=== PATIENT | male | born 1930 | race Caucasian/White ===

== ENCOUNTER 2017-05-09 12:16 | Emergency (ER) | payer OTHER ==
[~2017-05-09] VITALS: Ht 165.1 cm; Wt 54.5 kg
[2017-05-09 12:17] VITALS: BP 191/95; PULSE 69; RESP 14; TEMP 98.5; O2SAT 97
[2017-05-09] MEDS ORDERED: SODIUM CHLORIDE 0.9% FLUSH 10 ML FLUSH IV FLUSH PRN (12:30)
--- NOTE | 2017-05-09 12:30 | PD ---
HPI Chief Complaint: Hypertension Time Seen by Provider: 12:28 Travel History International Travel<30 days: No Contact w/Intl Traveler<30days: No Traveled to known affect area: No History of Present Illness HPI 86-year-old male with PMH of HTN, HLD presents to the ED for evaluation of 3 day history of elevated BP. The patient endorses associated dizziness, worse when rising from sitting. He states that he had an episode 3 days ago where he was dizzy, fell to the ground. He did hit his head but he denies loss of consciousness. He denies headaches, vision changes, chest pain, shortness of breath, palpitations, abdominal pain, changes in appetite, changes in bowel habits, dysuria, back pain, weakness of the extremities. He endorses occasional streaky blood on the toilet paper which he associates with an external hemorrhoid. Patient's is at bedside and denies any unilateral weakness, facial drooping or slurred speech. He is followed by Dr. Blanchard, cardiology and Dr. Cortes, PCP. He saw Dr. Cortes yesterday and changes were made to his antihypertensives. PFSH Social History Tobacco Use: No (never) Allergies-Medications (Allergen,Severity, Reaction): Coded Allergies: No Known Allergies (Unverified , 05/09/17) Reported Meds & Prescriptions Reported Meds & Active Scripts Active Reported Timolol Opth Drops 0.5 % Soln 1 Drop EACH EYE BID Lisinopril 20 Mg Tab 20 Mg PO DAILY Aspirin 81 Mg Chew 81 Mg CHEW DAILY Amlodipine (Amlodipine Besylate) 5 Mg Tab 5 Mg PO DAILY Metoprolol Tartrate 25 Mg Tab 25 Mg PO TID Lovastatin 20 Mg Tab 20 Mg PO DAILY Review of Systems Except as stated in HPI: all other systems reviewed are Neg Physical Exam Narrative GENERAL: Well-nourished, well-developed pleasant, well-groomed white male in no acute distress. SKIN: Focused skin assessment warm/dry. HEAD: Normocephalic. Atraumatic. EYES: No scleral icterus. No injection or drainage. NECK: Supple, trachea midline. No JVD or lymphadenopathy. CARDIOVASCULAR: Regular rate and rhythm without gallops, or rubs. Systolic murmur heard best over the left lower sternal border. RESPIRATORY: Breath sounds equal bilaterally. No accessory muscle use. GASTROINTESTINAL: Abdomen soft, non-tender, nondistended. Active bowel sounds. MUSCULOSKELETAL: No cyanosis, or edema. NEUROLOGICAL: Awake and alert. Cranial nerves II through XII intact. Motor and sensory grossly within normal limits. Five out of 5 muscle strength in all muscle groups. Normal speech. BACK: Nontender without obvious deformity. No CVA tenderness. Data Data Last Documented VS Vital Signs Date Time Temp Pulse Resp B/P (MAP) Pulse Ox O2 Delivery O2 Flow Rate FiO2 05/09/17 14:45 63 17 159/91 (113) 99 05/09/17 12:32 Room Air 05/09/17 12:17 98.5 Orders Orders Complete Blood Count With Diff (05/09/17 12:28) Comprehensive Metabolic Panel (05/09/17 12:28) Prothrombin Time / Inr (Pt) (05/09/17 12:28) Act Partial Throm Time (Ptt) (05/09/17 12:28) Urinalysis - C+S If Indicated (05/09/17 12:28) Iv Access Insert/Monitor (05/09/17 12:28) Ecg Monitoring (05/09/17 12:28) Oximetry (05/09/17 12:28) Sodium Chloride 0.9% Flush (Ns Flush) (05/09/17 12:30) Electrocardiogram (05/09/17 12:28) Chest, Single Ap (05/09/17 12:28) Ct Brain W/O Iv Contrast(Rout) (05/09/17 ) Troponin I (05/09/17 12:28) Orthostatic Vital Signs (05/09/17 13:27) Ed Discharge Order (05/09/17 14:42) Labs Laboratory Tests Test 05/09/17 12:30 05/09/17 13:12 White Blood Count 6.6 TH/MM3 Red Blood Count 3.99 MIL/MM3 Hemoglobin 12.9 GM/DL Hematocrit 37.5 % Mean Corpuscular Volume 94.1 FL Mean Corpuscular Hemoglobin 32.3 PG Mean Corpuscular Hemoglobin Concent 34.4 % Red Cell Distribution Width 13.2 % Platelet Count 180 TH/MM3 Mean Platelet Volume 8.6 FL Neutrophils (%) (Auto) 66.4 % Lymphocytes (%) (Auto) 23.5 % Monocytes (%) (Auto) 7.9 % Eosinophils (%) (Auto) 1.7 % Basophils (%) (Auto) 0.5 % Neutrophils # (Auto) 4.4 TH/MM3 Lymphocytes # (Auto) 1.6 TH/MM3 Monocytes # (Auto) 0.5 TH/MM3 Eosinophils # (Auto) 0.1 TH/MM3 Basophils # (Auto) 0.0 TH/MM3 CBC Comment DIFF FINAL Differential Comment Prothrombin Time 10.1 SEC Prothromb Time International Ratio 0.9 RATIO Activated Partial Thromboplast Time 24.8 SEC Blood Urea Nitrogen 13 MG/DL Creatinine 0.95 MG/DL Random Glucose 119 MG/DL Total Protein 7.5 GM/DL Albumin 3.8 GM/DL Calcium Level 8.9 MG/DL Alkaline Phosphatase 66 U/L Aspartate Amino Transf (AST/SGOT) 20 U/L Alanine Aminotransferase (ALT/SGPT) 21 U/L Total Bilirubin 0.9 MG/DL Sodium Level 139 MEQ/L Potassium Level 4.1 MEQ/L Chloride Level 105 MEQ/L Carbon Dioxide Level 28.3 MEQ/L Anion Gap 6 MEQ/L Estimat Glomerular Filtration Rate 75 ML/MIN Troponin I LESS THAN 0.02 NG/ML Urine Color YELLOW Urine Turbidity CLEAR Urine pH 7.[address] 1.011 Urine Protein NEG mg/dL Urine Glucose (UA) NEG mg/dL Urine Ketones NEG mg/dL Urine Occult Blood NEG Urine Nitrite NEG Urine Bilirubin NEG Urine Urobilinogen LESS THAN 2.0 MG/DL Urine Leukocyte Esterase NEG Urine RBC LESS THAN 1 /hpf Urine WBC LESS THAN 1 /hpf Urine Squamous Epithelial Cells <1 /hpf Urine Mucus FEW /lpf Microscopic Urinalysis Comment CULT NOT INDICATED MDM Medical Decision Making Medical Screen Exam Complete: Yes Emergency Medical Condition: Yes Differential Diagnosis Persistent hypertension versus anemia versus metabolic derangement versus ICH versus SUZI versus other Narrative Course 86-year-old male with PMH of HTN, HLD presents to the ED for evaluation of 3 day history of elevated BP. The patient endorses associated dizziness, worse when rising from sitting. He states that he had an episode 3 days ago where he was dizzy, fell to the ground, hit his head sans LOC. He denies headaches, vision changes, chest pain, shortness of breath, palpitations, abdominal pain, changes in appetite, changes in bowel habits, dysuria, back pain, weakness of the extremities. Followed by Dr. Blanchard, cardiology and Dr. Cortes, PCP. He saw Dr. Cortes yesterday and was prescribed 5 mg amlodipine daily. Vitals reviewed. BP 191/95 on presentation. Physical exam reveals a pleasant white male in no acute distress. No focal neurological exams. There is a loud systolic murmur heard best at the left lower sternal border. Abdomen is soft and nontender. No lower extremity edema. EKG: Rate 62, sinus rhythm. LA interval 206, QRS 103, QTC 391. Normal axis. No ST changes. Reviewed by Dr. Mccall. CXR: No acute intrathoracic disease. Troponin negative 1. CBC and CMP are unremarkable. No culture indicated of the UA. CT brain: Negative for acute process per radiology read. Orthostatic vitals: Negative I discussed the patient and results of the workup and plan with Dr. Mccall who recommends calling the primary care. I spoke with Dr. Colby Choi, carbon capture power plant manager for Dr. Cortes. He is in agreement with discharge home today with close follow- up. He requested I provide his contact information to the patient should they have any questions. Phone . I discussed the results of the workup with the patient and his family. He is encouraged to room his at-home medications, keep a log of his blood pressures. We discussed reasons to return to the ED. He was provided with Dr. Choi's contact information and instructed to follow up closely with Dr. Cortes next week. The patient and his family indicated understanding of the instructions and are agreeable to the care plan. The patient is stable and discharged home. Diagnosis Primary Impression: Hypertension Qualified Codes: I10 - Essential (primary) hypertension Additional Impressions: Fall from standing Qualified Codes: W19.XXXA - Unspecified fall, initial encounter Dizziness Referrals: Carl Cortes MD Patient Instructions: Dizziness (ED), General Instructions, Hypertension (ED) Additional Instructions: Rest, hydrate. Return to normal, gentle activities as tolerated. Resume at home medications as previously prescribed. Dr. Colby Choi is covering for Dr. Cortes this week. If you have any questions please call him at [phone] before coming to the ED. Follow-up with Dr. Cortes next week. Return to the ED for worsening symptoms or any urgent or emergent medical condition. Disposition: DISCHARGE HOME Condition: Stable Hayley Camacho 10, 2017 12:30
[2017-05-09 12:32] VITALS: RESP 20; O2SAT 98
[2017-05-09] MEDS ORDERED: LISI-515 PO (12:32)
[2017-05-09] MEDS ORDERED: LOVA20TA PO (12:32)
[2017-05-09] MEDS ORDERED: AMLO5TAB2 PO (12:32)
[2017-05-09] MEDS ORDERED: ASPI-516 CHEW (12:32)
[2017-05-09] MEDS ORDERED: TIMO0.5S30 EACH EYE (12:32)
[2017-05-09] MEDS ORDERED: METO25TA3 PO (12:32)
[2017-05-09 12:58] LABS: AUTOMATED NEUTROPHIL # 4.4 TH/MM3 (1.8-7.7); BASOPHIL % 0.5 % (0.0-2.0); EOSINOPHIL # 0.1 TH/MM3 (0-0.4); EOSINOPHIL % 1.7 % (0.0-4.0); HEMATOCRIT 37.5 % (39.0-51.0); HEMO FLAGS DIFF FINAL; LYMPH % 23.5 % (9.0-44.0); LYMPHOCYTE # 1.6 TH/MM3 (1.0-4.8); MEAN CELL VOLUME 94.1 FL (80.0-100.0); MEAN CORPUSCULAR HEMOGLOBIN 32.3 PG (27.0-34.0); MEAN CORPUSCULAR HGB CONC 34.4 % (32.0-36.0); MONO % 7.9 % (0.0-8.0); NEUT % 66.4 % (16.0-70.0); PLATELET COUNT 180 TH/MM3 (150-450); RED BLOOD COUNT 3.99 MIL/MM3 (4.50-5.90); RED CELL DISTRIBUTION WIDTH 13.2 % (11.6-17.2); WHITE BLOOD COUNT 6.6 TH/MM3 (4.0-11.0)
--- NOTE | 2017-05-09 13:01 | RADRPT ---
EXAM DATE/TIME: 05/09/2017 12:48 [facility] COMPARISON: No previous studies available for comparison. INDICATIONS : Chest discomfort, high blood pressure, dizziness. MEDICAL HISTORY : Hypertension. SURGICAL HISTORY : Coronary artery stent. ENCOUNTER: Initial ACUITY: 2 days PAIN SCORE: 3/10 LOCATION: Bilateral chest FINDINGS: A single view of the chest demonstrates the lungs to be symmetrically aerated without evidence of mas s, infiltrate or effusion. There is a right-sided nipple shadow projected over the right lower lung. The cardiomediastinal contours are unremarkable. Osseous structures are intact. There is scoliosis and curvature of the thoracic spine to the right. CONCLUSION: No acute intrathoracic disease. Pietro Valente MD on May 09, 2017 at 12:59 Board Certified Radiologist. This report was verified electronically.
[2017-05-09 13:08] LABS: APTT (PATIENT) 24.8 SEC (24.3-30.1); INTERNATIONAL NORMALIZED RATIO 0.9 RATIO; PROTHROMBIN TIME - PATIENT 10.1 SEC (9.8-11.6)
[2017-05-09 13:11] LABS: ALT (GPT) 21 U/L (12-78); ANION GAP 6 MEQ/L (5-15); AST (GOT) 20 U/L (15-37); BICARBONATE 28.3 MEQ/L (21.0-32.0); BLOOD UREA NITROGEN 13 MG/DL (7-18); CHLORIDE 105 MEQ/L (98-107); GLOMERULAR FILTRATION RATE 75 ML/MIN (>89); POTASSIUM 4.1 MEQ/L (3.5-5.1); SODIUM (NA) 139 MEQ/L (136-145)
[2017-05-09 13:15] LABS: ALKALINE PHOSPHATASE 66 U/L (45-117); TOTAL BILIRUBIN ADULT 0.9 MG/DL (0.2-1.0)
[2017-05-09 13:27] LABS: BLOOD, URINE NEG (NEG); COMMENT (UR) CULT NOT INDICATED; CULTURE IF INDICATED CULT NOT INDICATED; GLUCOSE,URINE NEG (NEG); KETONE, URINE NEG (NEG); MUCUS URINE FEW /lpf (OCC); NITRITE,URINE NEG (NEG); SQUAMOUS EPITHELIAL CELL URINE <1 /hpf (0-5); URINE COLOR YELLOW (YELLW/STRAW)
[2017-05-09 13:54] VITALS: BP_SYST 151; BP_SYST 158; BP_SYST 161; BP_DIAS 78; BP_DIAS 88; BP_DIAS 92; RESP 16; RESP 20; RESP 22
--- NOTE | 2017-05-09 14:26 | RADRPT ---
EXAM DATE/TIME: 05/09/2017 14:13 [facility] COMPARISON: No previous studies available for comparison. INDICATIONS : Dizziness, cephalgia. RADIATION DOSE: 31.13 CTDIvol (mGy) MEDICAL HISTORY : None SURGICAL HISTORY : None. ENCOUNTER: Initial ACUITY: 1 day PAIN SCALE: 5/10 LOCATION: Bilateral cranial TECHNIQUE: Multiple contiguous axial images were obtained of the head. Using automated exposure control and adj ustment of the mA and/or kV according to patient size, radiation dose was kept as low as reasonably a chievable to obtain optimal diagnostic quality images. DICOM format image data is available electro nically for review and comparison. FINDINGS: CEREBRUM: The ventricles are normal for age. No evidence of midline shift, mass lesion, hemorrhage or acute in farction. No extra-axial fluid collections are seen. POSTERIOR FOSSA: The cerebellum and brainstem are intact. The 4th ventricle is midline. The cerebellopontine angle i s unremarkable. EXTRACRANIAL: The visualized portion of the orbits is intact. SKULL: The calvaria is intact. No evidence of skull fracture. CONCLUSION: Negative for an acute process. Abraham Rawls MD FACR on May 09, 2017 at 14:24 Board Certified Radiologist. This report was verified electronically.
[2017-05-09 14:45] VITALS: BP 159/91
--- NOTE | 2017-05-10 12:47 | EKG ---
Date Performed: 05/09/2017 Time Performed: 12:59:44 PTAGE: 86 years EKG: Sinus rhythm NORMAL ECG NO PREVIOUS TRACING DOCTOR: Jah Gomez Interpretating Date/Time 05/10/2017 12:46:28
== END 2017-05-09 15:09 | disposition home or self-care (01) ==
LOC: NEPC 12:16
DX: I10 Essential (primary) hypertension (principal); R42 Dizziness and giddiness; W19.XXXA Unspecified fall, initial encounter; E78.5 Hyperlipidemia, unspecified
CPT/HCPCS: 70450; 71010; 80053; 81001; 84484; 85025; 85610; 85730; 93005; 99285

== ENCOUNTER 2018-04-25 09:49 | Inpatient (IN) ==
--- NOTE | 2018-04-25 10:51 | ED ---
HPI General Chief Complaint: Neuro Symptoms/Deficit Stated Complaint: Poss Stroke Complaint Time Seen by Provider: 04/25/18 10:05 Source: patient Mode of arrival: ambulatory Limitations: no limitations History of Present Illness HPI Narrative: The patient is 87-year-old male who presents to the emergency department with family members for strokelike times. The patient was last seen normal last night at approximately 11 PM. The patient fell asleep during the baseball game, approximately the 6 standing per his report. The states the patient then developed right-sided facial droop and difficulty with speech, however, he did not want to come to the hospital last night. However, the patient's symptoms were still present this morning and they brought the patient to the emergency department for evaluation. He does complain of right facial droop, mild dysarthria, and family members note the patient has been having difficulty ambulating, however, he denies any weakness of the lower extremities. He denies any weakness or numbness of the upper or lower extremities and denies any history of previous CVA. The patient does take an aspirin daily. The patient does have a history of hypertension and hyperlipidemia, denies any history of diabetes, current tobacco use, or previous CVA. Onset (ago): hour(s) Last Observed Normal: 23:00 Timing confirmed by: spouse Location: Reports speech and right face History of same: No Severity: moderate Quality: Reports constant Relieving factors: none Exacerbating factors: none On Anticoagulants: No Treatments Prior to Arrival: Reports none Related Data Home Medications Medication Instructions Recorded Confirmed aspirin 81 mg PO DAILY 04/25/18 04/25/18 lisinopril 20 mg PO BID 04/25/18 04/25/18 lovastatin 20 mg PO QPM 04/25/18 04/25/18 metoprolol tartrate 25 mg PO TID 04/25/18 04/25/18 Allergies Allergy/AdvReac Type Severity Reaction Status Date / Time No Known Allergies Allergy Verified 02/10/18 18:11 Review of Systems ROS: all other systems reviewed are negative [facility] Medical History Medical History Hyperlipidemia (Acute) Hypertension (Acute) Surgical History Surgical History H/O hernia repair (Acute) History of prostate surgery (Acute) Hx of appendectomy (Acute) Hx of tonsillectomy (Acute) Family History Family History Other CAD (coronary artery disease) Social History Social History Substance History: No History of Abuse Second Hand Smoke Exposure: No Smoking Status: Never smoker How Often Do You Have a Drink Containing Alcohol: Never Recent Travel in [facility] within the Last 8 Weeks: No Recent Out of Country Travel within the Last 8 Weeks: No Immunization History Tetanus Immunization: Unsure Tetanus Immunization Year if Known: 2013 Exam Narrative Exam Narrative: GENERAL: Awake, alert, pleasant 87-year-old male who appears his stated age and is in no acute respiratory distress. SKIN: Focused skin assessment warm/dry. HEAD: Atraumatic. Normocephalic. EYES: Pupils equal and round. No scleral icterus. No injection or drainage. ENT: No nasal bleeding or discharge. Mucous membranes pink and moist. NECK: Trachea midline. No JVD. CARDIOVASCULAR: Regular rate and rhythm. Holosystolic murmur noted. RESPIRATORY: No accessory muscle use. Clear to auscultation. Breath sounds equal bilaterally. GASTROINTESTINAL: Abdomen soft, non-tender, nondistended. MUSCULOSKELETAL: No obvious deformities. No clubbing. No cyanosis. No edema. NEUROLOGICAL: Awake and alert. Right facial droop. Dysarthria noted. Patient is able to wrinkle his forehead bilaterally, symmetric. Sensation is symmetric on the face, arms, and legs. Mild drift of the right arm. No drift of the lower extremities. Finger to nose is normal. Heel to duncan is normal. Visual yost are symmetric. Dysarthria noted. Oriented to person, place, month, and year. PSYCHIATRIC: Appropriate mood and affect; insight and judgment normal. Course Initial Documented Vital Signs Temperature 97.5 F L 04/25/18 09:56 Pulse Rate 60 04/25/18 09:56 Respiratory Rate 20 04/25/18 09:56 Blood Pressure 182/86 H 04/25/18 09:56 Pulse Oximetry 98 04/25/18 09:56 Last Documented Vital Signs Temperature 97.5 F L 04/25/18 09:56 Pulse Rate 68 04/25/18 14:03 Respiratory Rate 16 04/25/18 14:03 Blood Pressure 183/84 H 04/25/18 14:03 Pulse Oximetry 98 04/25/18 13:14 NIH Stroke Scale NIH Stroke Scale Level of Consciousness: 0-Alert Orientation Questions: 0-Answers both correct Responds to Commands: 0-Both tasks correct Gaze Eye Movement: 0-Horizontal movement WNL Visual Yost: 0-No visual field defect Facial Movement: 2-Partial facial palsy Motor Functions Arm LEFT: 0-No drift Motor Functions Arm RIGHT: 1-Drift before 10 seconds Motor Functions Leg LEFT: 0-No drift Motor Functions Leg RIGHT: 0-No drift Limb Ataxia: 0-No ataxia Sensory Loss: 0-No sensory loss Best Language: 0-Normal Articulation: 2-Severe dysarthria Extinction or Inattention Sensory: 0-Absent Total: 5 Medical Decision Making MDM Narrative Medical decision making narrative: IV was established, labs were drawn and sent , and the patient was placed on cardiac telemetry monitoring and continuous pulse oximetry monitoring. EKG was ordered and interpreted. CT of the brain was obtained. A call was placed to neurology as patient possibly could be a candidate for IR, possibility of CTA addressed with neurology. The patient's stroke scale was 5 with dysarthria, possible candidate for IR. I discussed the patient with Dr. Samuel who request CTA of the head and neck as well as CT perfusion. Therefore, i-STAT was called to lab and CTs were ordered. Initial CT the brain is negative, no evidence of hemorrhage, old CVA noted. CTA reveals no acute abnormalities, therefore, no IR intervention. Therefore, the patient was administered aspirin. I discussed the patient with the on-call medical team who agreed with admission. Medical Screen Exam Complete: Yes Emergency Medical Condition: Yes Differential Diagnosis Differential Diagnosis: Differential diagnosis includes CVA, TIA, intracranial hemorrhage, Núñez's palsy, complicated migraine, seizure. Lab Data Result diagrams: 04/25/18 10:30 04/25/18 10:30 Lab Results 04/25/18 04/25/18 04/25/18 Range/Units 10:30 10:30 10:30 WBC 6.9 (4.0-11.0) th/mm3 RBC 3.90 L (4.50-5.90) mil/mm3 Hgb 12.5 L (13.0-17.0) gm/dL Hct 36.8 L (39.0-51.0) % MCV 94.4 (80.0-100.0) fL MCH 32.0 (27.0-34.0) pg MCHC 33.9 (32.0-36.0) % RDW 13.0 (11.6-17.2) % Plt Count 199 (150-450) th/mm3 MPV 8.3 (7.0-11.0) fL Neut % (Auto) 67.9 (16.0-70.0) % Lymph % (Auto) 20.8 (9.0-44.0) % [place] % (Auto) 7.5 (0.0-8.0) % Eos % (Auto) 3.3 (0.0-4.0) % Baso % (Auto) 0.5 (0.0-2.0) % Neut # (Auto) 4.7 (1.8-7.7) th/mm3 Lymph # (Auto) 1.4 (1.0-4.8) th/mm3 [place] # (Auto) 0.5 (0.0-0.9) th/mm3 Eos # (Auto) 0.2 (0.0-0.4) th/mm3 Baso # (Auto) 0.0 (0.0-0.2) th/mm3 WBC Differential . Differential Comment Auto diff final PT 10.3 (9.8-11.6) sec INR 1.0 Ratio APTT 23.8 L (24.3-30.1) sec Sodium 141 (136-145) meq/L Potassium 4.1 (3.5-5.1) meq/L Chloride 105 (98-107) meq/L Carbon Dioxide 31.1 (21.0-32.0) meq/L Anion Gap 5 (5-15) meq/L BUN 15 (7-18) mg/dL Creatinine 1.14 (0.60-1.30) mg/dL Estimated GFR 61 L (>89) mL/min POC Glucose (68-110) mg/dl Random Glucose 92 (74-106) mg/dL Calcium 9.1 (8.5-10.1) mg/dL Total Bilirubin 1.5 H (0.2-1.0) mg/dL AST 23 (15-37) U/L ALT 21 (12-78) U/L Alkaline Phosphatase 61 (45-117) U/L Total Creatine Kinase 284 (39-308) U/L CK-MB (CK-2) 2.3 (0.5-3.6) ng/mL Troponin I Less than 0.02 L (0.02-0.05) ng/mL Total Protein 7.5 (6.4-8.2) g/dL Albumin 3.8 (3.4-5.0) g/dL 04/25/18 Range/Units 10:36 WBC (4.0-11.0) th/mm3 RBC (4.50-5.90) mil/mm3 Hgb (13.0-17.0) gm/dL Hct (39.0-51.0) % MCV (80.0-100.0) fL MCH (27.0-34.0) pg MCHC (32.0-36.0) % RDW (11.6-17.2) % Plt Count (150-450) th/mm3 MPV (7.0-11.0) fL Neut % (Auto) (16.0-70.0) % Lymph % (Auto) (9.0-44.0) % [place] % (Auto) (0.0-8.0) % Eos % (Auto) (0.0-4.0) % Baso % (Auto) (0.0-2.0) % Neut # (Auto) (1.8-7.7) th/mm3 Lymph # (Auto) (1.0-4.8) th/mm3 [place] # (Auto) (0.0-0.9) th/mm3 Eos # (Auto) (0.0-0.4) th/mm3 Baso # (Auto) (0.0-0.2) th/mm3 WBC Differential Differential Comment PT (9.8-11.6) sec INR Ratio APTT (24.3-30.1) sec Sodium (136-145) meq/L Potassium (3.5-5.1) meq/L Chloride (98-107) meq/L Carbon Dioxide (21.0-32.0) meq/L Anion Gap (5-15) meq/L BUN (7-18) mg/dL Creatinine (0.60-1.30) mg/dL Estimated GFR (>89) mL/min POC Glucose 101 (68-110) mg/dl Random Glucose (74-106) mg/dL Calcium (8.5-10.1) mg/dL Total Bilirubin (0.2-1.0) mg/dL AST (15-37) U/L ALT (12-78) U/L Alkaline Phosphatase (45-117) U/L Total Creatine Kinase (39-308) U/L CK-MB (CK-2) (0.5-3.6) ng/mL Troponin I (0.02-0.05) ng/mL Total Protein (6.4-8.2) g/dL Albumin (3.4-5.0) g/dL Imaging Data Radiologist's impression: Head CT 04/25/18 10:21 CONCLUSION: 1. Severe diffuse periventricular and subcortical white matter small vessel ischemic changes bilaterally. 2. Cerebral atrophy. 3. 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 4. No acute hemorrhage, acute infarct, midline shift or extra-axial bleed. . Head CTA 04/25/18 10:55 CONCLUSION: No acute intracranial vascular abnormality is identified. Neck CTA 04/25/18 10:55 CONCLUSION: 1. Negative CTA Carotid. ECG Data EKG Prior to Arrival: No Attestation: I personally reviewed and interpreted this ECG as follows: Interpretation: EKG reveals normal sinus rhythm with a rate 89. Normal axis. QTC 411 ms. Discharge Plan Discharge Disposition Patient Disposition: 30 Still Patient Discharge Condition Condition: Stable Discharge Details Diagnosis: Acute CVA (cerebrovascular accident), Dysarthria Physicians Team ED Provider: Billy Connor Primary Care Provider: Carl Cortes Attending Provider: Crescencio Vazquez Other Providers: Matt Gutierrez ; Edouard Samuel Status ED Status: Admitted Patient
[2018-04-25 10:57] LABS: Hematocrit 36.8 % (39.0-51.0); Hemoglobin 12.5 gm/dL (13.0-17.0); Mean Corpuscular HGB Conc 33.9 % (32.0-36.0); Mean Corpuscular Volume 94.4 fL (80.0-100.0); Mean Platelet Volume 8.3 fL (7.0-11.0); Platelet Count 199 th/mm3 (150-450); White Blood Count 6.9 th/mm3 (4.0-11.0)
[2018-04-25 10:58] LABS: Baso % (Auto) 0.5 % (0.0-2.0); Eos # (Auto) 0.2 th/mm3 (0.0-0.4); Eos % (Auto) 3.3 % (0.0-4.0); Lymph # (Auto) 1.4 th/mm3 (1.0-4.8); Lymph % (Auto) 20.8 % (9.0-44.0); Mono # (Auto) 0.5 th/mm3 (0.0-0.9); Mono % (Auto) 7.5 % (0.0-8.0); Neut # (Auto) 4.7 th/mm3 (1.8-7.7); Neut % (Auto) 67.9 % (16.0-70.0)
[2018-04-25 11:09] LABS: Activated Partial Thrombo Time 23.8 sec (24.3-30.1); Prothrombin Time 10.3 sec (9.8-11.6)
[2018-04-25 11:14] LABS: Alanine Aminotransferase 21 U/L (12-78); Albumin 3.8 g/dL (3.4-5.0); Anion Gap 5 meq/L (5-15); Aspartate Aminotransferase 23 U/L (15-37); Blood Urea Nitrogen 15 mg/dL (7-18); Calcium 9.1 mg/dL (8.5-10.1); Carbon Dioxide 31.1 meq/L (21.0-32.0); Chloride 105 meq/L (98-107); Glomerular Filtration Rate 61 mL/min (>89); Glucose,Random 92 mg/dL (74-106); Potassium 4.1 meq/L (3.5-5.1); Sodium 141 meq/L (136-145)
[2018-04-25 11:18] LABS: Alkaline Phosphatase 61 U/L (45-117); Creatine Kinase 284 U/L (39-308); Total Protein 7.5 g/dL (6.4-8.2)
[2018-04-25 11:31] LABS: Creatine Kinase MB 2.3 ng/mL (0.5-3.6)
[2018-04-25] MEDS: Sod Chloride 0.9% Inj 1,000 ML IV.CONT SCH ×2 (11:45→16:54)
--- NOTE | 2018-04-25 12:50 | CT ---
EXAM DATE: 04/25/2018 12:45 PM EDT AGE/SEX: 87 years / Male INDICATIONS: Right sided facial droop. CLINICAL DATA: This is the patient's initial encounter. Patient reports that signs and symptoms have been present for 1 day and indicates a pain score of 0/10. MEDICAL/SURGICAL HISTORY: Hypertension. Tonsillectomy. RADIATION DOSE: 52.83 CTDI (mGy) COMPARISON: [facility] [place], CTA HEAD W CONTRAST W 3D, 04/25/2018. [facility] [place], CT BRAIN W/O CONTRAST, 05/09/2017. . TECHNIQUE: CT of the head without contrast. Using automated exposure control and adjustment of the mA and/or kV according to patient size, radiation dose was kept as low as reasonably achievable to ob tain optimal diagnostic quality images. DICOM format image data is available electronically for revi ew and comparison. FINDINGS: Cerebrum: Cerebral atrophy is noted. Severe diffuse periventricular and subcortical white matter smal l vessel ischemic changes are noted bilaterally. Old lacunar infarct is noted involving the genu of t he left internal capsule. No acute infarct or midline shift is noted. No extra-axial bleed is noted. Posterior Fossa: The cerebellum and brainstem are intact. The 4th ventricle is midline. The cerebe llopontine angle is unremarkable. Extracranial: The visualized portion of the orbits is intact. Skull: The calvaria is intact. No evidence of skull fracture. CONCLUSION: 1. Severe diffuse periventricular and subcortical white matter small vessel ischemic changes bilater ally. 2. Cerebral atrophy. 3. 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 4. No acute hemorrhage, acute infarct, midline shift or extra-axial bleed. . Electronically signed by: Rony Louis MD 04/25/2018 12:48 PM EDT
[2018-04-25] MEDS ORDERED: Acetaminophen 325 MG Tablet PO PRN (13:14)
--- NOTE | 2018-04-25 13:36 | CT ---
EXAM DATE: 04/25/2018 1:32 PM EDT AGE/SEX: 87 years / Male INDICATIONS: Right sided facial droop. CLINICAL DATA: This is the patient's initial encounter. Patient reports that signs and symptoms have been present for 1 day and indicates a pain score of 0/10. MEDICAL/SURGICAL HISTORY: Hypertension. Tonsillectomy. RADIATION DOSE: 10.18 CTDI (mGy) ; Combined studies COMPARISON: No prior exams available for comparison. TECHNIQUE: Volumetric scanning was performed using a multirow detector CT scanner during bolus infus ion of 64 ml Visipaque 320 (iodixanol) nonionic water-soluble contrast as a cumulative dose for mult iple exams. The data was postprocessed with a variety of visualization algorithms including full-vo lume maximum intensity projection, multiplanar sliding thin-slab reformation, curved-planar reformati on, and surface-rendering techniques. Using automated exposure control and adjustment of the mA and/ or kV according to patient size, radiation dose was kept as low as reasonably achievable to obtain op timal diagnostic quality images. DICOM format image data is available electronically for review and comparison. FINDINGS: Aortic Arch: There is a three-vessel origin of the great vessels from the aorta. No evidence of ost ial narrowing Right Carotid: The common carotid artery is intact. The carotid bulb has a normal configuration wit hout ulceration or narrowing. The internal carotid artery lumen is smooth without stenosis. The ext ernal carotid artery is intact. Left Carotid: The common carotid artery is intact. The carotid bulb has a normal configuration with out ulceration or narrowing. The internal carotid artery lumen is smooth without stenosis. The exte rnal carotid artery is intact. Vertebrals: The vertebral arteries have a symmetric diameter. No stenotic lesions are seen. Percent stenosis is calculated using the diameter of the stenotic region over the diameter of the nor mal distal internal carotid artery. CONCLUSION: 1. Negative CTA Carotid. Electronically signed by: Rony Louis MD 04/25/2018 1:35 PM EDT
--- NOTE | 2018-04-25 13:38 | CT ---
EXAM DATE: 04/25/2018 1:31 PM EDT AGE/SEX: 87 years / Male INDICATIONS: Right sided facial droop. CLINICAL DATA: This is the patient's initial encounter. Patient reports that signs and symptoms have been present for 1 day and indicates a pain score of 0/10. MEDICAL/SURGICAL HISTORY: Hypertension. Tonsillectomy. RADIATION DOSE: 10.18 CTDI (mGy) ; Combined studies COMPARISON: [facility] [place], [place] HEAD W/O CONTRAST, 04/25/2018. . TECHNIQUE: Volumetric scanning was performed using a multi-row detector CT scanner during bolus infu scot of 64 ml Visipaque 320 (iodixanol) nonionic water-soluble contrast as a cumulative dose for [facility] tiple exams. The data was post processed with a variety of visualization algorithms including full volume maximum intensity projection, multi-planar sliding thin slab reformation, curved planar reform ation, and surface rendering techniques. Using automated exposure control and adjustment of the mA a nd/or kV according to patient size, radiation dose was kept as low as reasonably achievable to obtain optimal diagnostic quality images. DICOM format image data is available electronically for review a nd comparison. FINDINGS: There is mild calcified plaque in the intracranial internal carotid arteries bilaterally. No signific ant stenosis is present. A1 segments are symmetric and patent and anterior cerebral arteries are with in normal limits. The middle cerebral arteries bilaterally are symmetric without high-grade stenosis. No aneurysm is seen. Right vertebral artery is dominant. Basilar artery demonstrates no abnormality. Posterior cerebral arteries are within normal limits. CONCLUSION: No acute intracranial vascular abnormality is identified. Electronically signed by: Shane Shankar MD 04/25/2018 1:36 PM EDT
--- NOTE | 2018-04-25 14:27 | P.HPIM ---
History of Present Illness Primary Care Physician: Carl Cortes MD Chief Complaint: Slurred speech History of Present Illness: The patient is an 87-year-old male with a past medical history of hypertension and hyperlipidemia who is presenting to the hospital with slurred speech. The patient says that last night his family was over and after eating dinner they noticed that he was drooling. They also noticed that the patient's speech became slurred. His face also appeared to be asymmetrical. They recommended he come to the emergency department but the patient refused. This morning he woke up and was unable to talk correctly. He started stumbling with ambulation. He denied any pain or shortness of breath. He was brought to the hospital at that time. He denies any numbness or tingling. He says he is still having speech difficulties. He denies any recent travel. He denies any prior history of stroke. Family was at the bedside and assisted with history. He has had a tremor for quite some time. Inpatient Certification: I certify that the inpatient services were ordered in accordance with Medicare regulations governing the order. This includes certification that hospital inpatient services are reasonable and necessary and in the case of services not specified as inpatient-only under 42 CFR 419.22(n), that they are appropriately provided as inpatient services in accordance to with the 2-midnight benchmark under 43 CFR 412.3(e) Estimated Total Length of Stay (Days): 2 Plans for Post Hospital Care: Not yet determined Review of Systems All other systems reviewed negative except as stated in [facility] - History History Provided By: Family Member - Medical History Medical History: Medical History (Last Updated 04/25/18 @ 14:13 by Crescencio Vazquez DO) Hyperlipidemia Hypertension - Surgical History Surgical History: Surgical History (Last Updated 04/25/18 @ 14:13 by Crescencio Vazquez DO) H/O hernia repair History of prostate surgery Hx of appendectomy Hx of tonsillectomy - Family History Family History: Family History (Last Updated 04/25/18 @ 14:13 by Crescencio Vazquez DO) Other CAD (coronary artery disease) - Social History I have reviewed the patient's Social History: Yes - Tobacco History Second Hand Smoke Exposure: No Smoking Status: Never smoker - Alcohol History How Often Do You Have a Drink Containing Alcohol: Never - Substance Use History Substance History: No History of Abuse - Travel History Recent Travel in the [facility] Within the Last 8 Weeks: No Recent Travel Out of the Country Within the Last 8 Weeks: No - Immunization History Tetanus Immunization: Unsure Tetanus Immunization Year if Known: 2013 Medications and Allergies Active Medications: Active Medications Acetaminophen (Tylenol) 650 mg PO Q4H PRN PRN Reason: Temp > 100.4, pain 1-2 Aspirin (Ecotrin) 81 mg PO DAILY [facility] Sodium Chloride (Ns Inj) 1,000 mls @ 70 mls/hr IV.CONT .[id number] [facility] Last Admin: 04/25/18 11:45 Dose: 70 mls/hr Pravastatin Sodium (Pravachol) 20 mg PO DAILY@1800 [place] Sodium Chloride (Ns Flush) 2 ml IV.FLUSH PRN PRN PRN Reason: FLUSH AFTER USING IV ACCESS Allergies Allergy/AdvReac Type Severity Reaction Status Date / Time No Known Allergies Allergy Verified 02/10/18 18:11 Home Medications Medication Instructions Recorded Confirmed Type aspirin 81 mg PO DAILY 04/25/18 04/25/18 History lisinopril 20 mg PO BID 04/25/18 04/25/18 History lovastatin 20 mg PO QPM 04/25/18 04/25/18 History metoprolol tartrate 25 mg PO TID 04/25/18 04/25/18 History Exam Vital signs: Vital Signs 04/25/18 09:56 04/25/18 10:02 04/25/18 10:21 Temperature 97.5 F L Pulse Rate 60 54 L Respiratory Rate 20 18 Blood Pressure 182/86 H 190/92 H Pulse Oximetry 98 98 98 04/25/18 11:30 04/25/18 12:05 04/25/18 13:14 Temperature Pulse Rate 52 L 52 L 68 Respiratory Rate 16 16 Blood Pressure 174/81 H 169/86 H 181/86 H Pulse Oximetry 98 98 04/25/18 14:03 Temperature Pulse Rate 68 Respiratory Rate 16 Blood Pressure 183/84 H Pulse Oximetry Intake & Output 04/24/18 04/25/18 04/25/18 18:59 06:59 18:59 Output Total 400 / 400 Balance -400 / -400 Weight 54.885 kg Output: Urine 400 / 400 Other: # Voids 3 Narrative: GENERAL: Resting comfortably. SKIN: Focused skin assessment warm/dry. HEAD: Atraumatic. Normocephalic. EYES: Pupils equal and round. No scleral icterus. No injection or drainage. ENT: No nasal bleeding or discharge. Mucous membranes pink and moist. NECK: Trachea midline. No JVD. CARDIOVASCULAR: Regular rate and rhythm. Harsh holosystolic murmur noted. RESPIRATORY: No accessory muscle use. Clear to auscultation. Breath sounds equal bilaterally. GASTROINTESTINAL: Abdomen soft, non-tender, nondistended. MUSCULOSKELETAL: No obvious deformities. No clubbing. No cyanosis. No edema. NEUROLOGICAL: Awake and alert. Right facial droop. Dysarthria noted. Patient is able to wrinkle his forehead bilaterally, symmetric. Sensation is symmetric on the face, arms, and legs. Finger to nose is normal. Oriented to person, place, month, and year. Resting tremor noted. PSYCHIATRIC: Appropriate mood and affect; insight and judgment normal. Results - Labs CBC & Chem 7: 04/25/18 10:30 04/25/18 10:30 Labs: Short CBC 04/25/18 Range/Units 10:30 WBC 6.9 (4.0-11.0) th/mm3 Hgb 12.5 L (13.0-17.0) gm/dL Hct 36.8 L (39.0-51.0) % Plt Count 199 (150-450) th/mm3 BMP 04/25/18 10:30 Sodium 141 Potassium 4.1 Chloride 105 Carbon Dioxide 31.1 BUN 15 Creatinine 1.14 Calcium 9.1 Cardiac Enzymes 04/25/18 Range/Units 10:30 Total Creatine Kinase 284 (39-308) U/L CK-MB (CK-2) 2.3 (0.5-3.6) ng/mL Troponin I Less than 0.02 L (0.02-0.05) ng/mL Liver Function 04/25/18 Range/Units 10:30 Total Bilirubin 1.5 H (0.2-1.0) mg/dL AST 23 (15-37) U/L ALT 21 (12-78) U/L Alkaline Phosphatase 61 (45-117) U/L Albumin 3.8 (3.4-5.0) g/dL - Imaging Impressions Head CT 04/25/18 10:21 CONCLUSION: 1. Severe diffuse periventricular and subcortical white matter small vessel ischemic changes bilaterally. 2. Cerebral atrophy. 3. 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 4. No acute hemorrhage, acute infarct, midline shift or extra-axial bleed. . Head CTA 04/25/18 10:55 CONCLUSION: No acute intracranial vascular abnormality is identified. Neck CTA 04/25/18 10:55 CONCLUSION: 1. Negative CTA Carotid. Caprini VTE Risk Assessment Caprini VTE Risk Assessment: Moderate/High Risk (score >= 2) Caprini Risk Assessment Model: Point Value = 1 Point Value = 2 Point Value = 3 Point Value = 5 Age 41-60 Minor surgery BMI > 25 kg/m2 Swollen legs Varicose veins or History of unexplained or recurrent spontaneous Oral contraceptives or hormone replacement Sepsis (< 1 month) Serious lung disease, including pneumonia (< 1 month) Abnormal pulmonary function Acute myocardial infarction Congestive heart failure (< 1 month) History of inflammatory bowel disease Medical patient at bed rest Age 61-74 Arthroscopic surgery Major open surgery (> 45 min) Laparoscopic surgery (> 45 min) Malignancy Confined to bed (> 72 hours) Immobilizing plaster cast Central venous access Age >= 75 History of VTE Family history of VTE Factor V Leiden Prothrombin [id number] Lupus anticoagulant Anticardiolipin antibodies Elevated serum homocysteine Heparin-induced thrombocytopenia Other congenital or acquired thrombophilia Stroke (< 1 month) Elective arthroplasty Hip, pelvis, or leg fracture Acute spinal cord injury (< 1 month) Prophylaxis Regimen: Total Risk Factor Score Risk Level Prophylaxis Regimen 0-1 Low Early ambulation 2 Moderate Order ONE of the following: *Sequential Compression Device (SCD) *Heparin 5000 units SQ BID 3-4 Higher Order ONE of the following medications: *Heparin 5000 units SQ TID *Enoxaparin/Lovenox 40 mg SQ daily (WT < 150 kg, CrCl > 30 mL/min) *Enoxaparin/Lovenox 30 mg SQ daily (WT < 150 kg, CrCl > 10-29 mL/min) *Enoxaparin/Lovenox 30 mg SQ BID (WT < 150 kg, CrCl > 30 mL/min) AND/OR *Sequential Compression Device (SCD) 5 or more Highest Order ONE of the following medications: *Heparin 5000 units SQ TID (Preferred with Epidurals) *Enoxaparin/Lovenox 40 mg SQ daily (WT < 150 kg, CrCl > 30 mL/min) *Enoxaparin/Lovenox 30 mg SQ daily (WT < 150 kg, CrCl > 10-29 mL/min) *Enoxaparin/Lovenox 30 mg SQ BID (WT < 150 kg, CrCl > 30 mL/min) AND *Sequential Compression Device (SCD) Assessment and Plan - Plan CVA The pt presented with dysarthria and a right sided facial droop. CT with old lacunar infarct. CTA negative. -neurology consult requested. -echo pending. -neuro checks. -PT/OT/ST. -permissive HTN. -IVFs. -check A1c, lipid profile, B12 and TSH. -child support case officer consult. -ASA. HTN Blood pressure elevated. On lisinopril and Lopressor as an outpt. -permissive HTN for now. -resume home regimen in AM. PPx: SCDs Code Status: Full
[2018-04-25] MEDS ORDERED: Gadobutrol PF 10 MMOL/10 ML Vial (for RAD) IV.SIG ONE (16:06)
--- NOTE | 2018-04-25 16:16 | MR ---
EXAM DATE: 04/25/2018 4:09 PM EDT AGE/SEX: 87 years / Male INDICATIONS: Slurred speech. Right facial droop. CLINICAL DATA: This is the patient's initial encounter. Patient reports that signs and symptoms have been present for 1 day and indicates a pain score of 0/10. MEDICAL/SURGICAL HISTORY: Hypertension. Hypercholesterolemia. Appendectomy. Tonsillectomy. I nguinal hernia repair. COMPARISON: [facility] [place]/O [place], 04/25/2018. . TECHNIQUE: Multiplanar, multisequence examination of the brain was performed without and with 6cc ml Gadavist (gadobutrol) contrast as a single exam dose. FINDINGS: There is an approximately 1.5 cm in length somewhat linear infarct is in the left basal ganglia poste riorly. Remote left basal ganglia infarct also present more medially. Moderate chronic white matter i schemic changes. No mass effect or shift. No hydrocephalus. CONCLUSION: 1. Acute to subacute linear infarct in the left basal ganglia extending over a length about 1.5 cm. 2. Remote left basal ganglia infarct. Moderate chronic ischemic changes in the white matter. Electronically signed by: Lobo Monroe MD 04/25/2018 4:14 PM EDT
--- NOTE | 2018-04-25 20:34 | MB ---
cc: Edouard Samuel MD DATE: 04/25/2018 HISTORY OF PRESENT ILLNESS: This is an 87-year-old right-handed man with hypertension, hypercholesterolemia, cardiac murmur, sees Dr. Solis for that. No other major past medical history. Takes a baby aspirin a day. Yesterday about 6 p.m., sudden onset of difficulty walking, right facial droop, some slurred speech and drooling on the right side of his mouth and came into the hospital today. REVIEW OF SYSTEMS: No history of diabetes, AL, stent, angioplasty, A Fib, Coumadin, CABG, stent, renal, hepatic or pulmonary disease, thyroid disease, lupus, ulcer, cancer, seizure or stroke. SOCIAL HISTORY: Nonsmoker, drinker, lives with his . FAMILY HISTORY: Negative for cancer, seizure, stroke. Positive for CAD. MEDICATIONS AT HOME: 1. Losartan. 2. Metoprolol. 3. Baby aspirin. 4. Lisinopril. Here he has been started on a statin. PHYSICAL EXAMINATION: GENERAL: On exam, sinus rhythm, pulse 68, afebrile, blood pressure 182/86-190/92. There are no carotid bruits. HEART: Regular rhythm with a 3/7 systolic ejection murmur. NEUROLOGIC: Pupils are equal. Visual valdivia are full. Extraocular movements intact without nystagmus. Face has a slight right facial droop. Tongue was midline with normal movement. His speech is slurred, but not aphasic. He knows the month and the year. There is no drift. He had normal strength in upper and lower extremities bilaterally. Toes are downgoing on the left, appear to be upgoing on the right. DTRs are trace throughout. Pinprick is intact throughout upper and lower extremities and face bilaterally. Not ataxic on [id number]. Speech is a little slurred. LABORATORY DATA: CBC essentially normal. Basic metabolic profile normal. LFTs normal. CPK, troponin, albumin normal. Coags normal. He had a CTA of his neck done, which was read as negative. He had a CTA of his head done, which was read as negative and a CT scan of his brain performed, old lacunar infarct on the left. I reviewed his CT scan. He has a lot of changes in the left hemisphere, some of it may be subacute, and one is definitely chronic in the left internal capsule region. Left ventricle is slightly larger than the right. Certainly white matter changes bilaterally, much more on the left side. IMPRESSION: Acute stroke. We will do an MRI of the brain and echocardiogram, further workup. Put him on Plavix for now. I will be following him with you in the hospital. MD MATT Solis/anthony , 02:36 PM , 02:43 PM
--- NOTE | 2018-04-25 23:27 | ECG ---
Date Performed: 04/25/2018 Time Performed: 14:33:16 PTAGE: 87 years EKG: Sinus rhythm NORMAL ECG PREVIOUS TRACING : 05/09/2017 12.59 DOCTOR: Manuel Ugarte Interpretating Date/Time 04/25/2018 23:25:16
[2018-04-25 23:36] LABS: Cholesterol 134 mg/dL (120-200); Triglycerides 85 mg/dL (42-150)
[2018-04-26 00:01] LABS: Chol/HDL Ratio 2.44 Ratio; HDL Cholesterol 54.9 mg/dL (40.0-60.0); LDL Cholesterol,Calculated 62 mg/dL (0-99); Vitamin B12 344 pg/mL (193-986)
[2018-04-26] MEDS: Sod Chloride 0.9% Inj 1,000 ML IV.CONT SCH ×2 (03:04→14:57)
[2018-04-26 07:24] LABS: Baso % (Auto) 0.5 % (0.0-2.0); Eos # (Auto) 0.1 th/mm3 (0.0-0.4); Eos % (Auto) 2.4 % (0.0-4.0); Hematocrit 33.4 % (39.0-51.0); Hemoglobin 11.5 gm/dL (13.0-17.0); Lymph # (Auto) 1.1 th/mm3 (1.0-4.8); Lymph % (Auto) 18.2 % (9.0-44.0); Mean Corpuscular HGB Conc 34.4 % (32.0-36.0); Mean Corpuscular Volume 93.2 fL (80.0-100.0); Mean Platelet Volume 8.1 fL (7.0-11.0); Mono # (Auto) 0.5 th/mm3 (0.0-0.9); Mono % (Auto) 8.7 % (0.0-8.0); Neut # (Auto) 4.2 th/mm3 (1.8-7.7); Neut % (Auto) 70.2 % (16.0-70.0); Platelet Count 173 th/mm3 (150-450); Red Blood Count 3.58 mil/mm3 (4.50-5.90); Red Cell Distribution Width 13.1 % (11.6-17.2)
[2018-04-26 07:51] LABS: Alanine Aminotransferase 19 U/L (12-78); Albumin 3.1 g/dL (3.4-5.0); Alkaline Phosphatase 56 U/L (45-117); Anion Gap 9 meq/L (5-15); Aspartate Aminotransferase 22 U/L (15-37); Blood Urea Nitrogen 13 mg/dL (7-18); Calcium 8.2 mg/dL (8.5-10.1); Chloride 108 meq/L (98-107); Glomerular Filtration Rate 82 mL/min (>89); Glucose,Random 74 mg/dL (74-106); Potassium 3.7 meq/L (3.5-5.1); Sodium 142 meq/L (136-145); Total Protein 6.2 g/dL (6.4-8.2)
--- NOTE | 2018-04-26 12:37 | P.PNIM ---
Subjective Interval history: Patient reports he is feeling okay except for persistent facial droop. Right side is still weaker compared to the left. Had swallowing difficulties earlier this morning. Physical Exam Vital signs: Vital Signs 04/25/18 13:14 04/25/18 14:03 04/25/18 16:00 Temperature 97.7 F Pulse Rate 68 68 67 Respiratory Rate 16 16 18 Blood Pressure 181/86 H 183/84 H 150/83 H Pulse Oximetry 98 97 04/25/18 20:00 04/26/18 00:00 04/26/18 04:00 Temperature 97.9 F 97.1 F L 97.9 F Pulse Rate 67 64 65 Respiratory Rate 17 19 20 Blood Pressure 172/76 H 159/78 H 140/88 Pulse Oximetry 95 95 100 04/26/18 08:00 04/26/18 10:03 Temperature 97.7 F Pulse Rate 66 67 Respiratory Rate 18 Blood Pressure 135/78 Pulse Oximetry 97 Intake & Output 04/25/18 04/26/18 04/26/18 18:59 06:59 18:59 Intake Total 1000 / 1000 1000 / 1000 Output Total 800 / 800 Balance 200 / 200 1000 / 1000 Weight 54.885 kg 53.8 kg Intake: IV 1000 / 1000 1000 / 1000 NS Inj 1,000 ML @ 70 mls/hr IV. 1000 / 1000 1000 / 1000 CONT .[id number] [facility] Rx#:[id number] Output: Urine 800 / 800 Other: # Voids 3 5 # Urine Diapers 1 Date of Last Bowel Movement 04/24/18 04/26/18 # Bowel Movements 2 Narrative: GENERAL: This is a well-nourished, well-developed patient, in no apparent distress. CARDIOVASCULAR: Normal rate and regular rhythm without murmurs, gallops, or rubs. RESPIRATORY: Good respiratory efforts. Breath sounds equal and clear to auscultation bilaterally. GASTROINTESTINAL: Abdomen soft, non-tender, non-distended. Normal active bowel sounds MUSCULOSKELETAL: Extremities without cyanosis, or edema. NEURO: Alert & Oriented x4 to person, place, time, situation. Facial droop noted, 4 out of 5 strength on the right compared to 5 out of 5 on the left PSYCH: Appropriate mood and affect. Results - Labs CBC & Chem 7: 04/26/18 07:03 04/26/18 07:03 Laboratory Results - last 24 hr 04/25/18 04/25/18 04/25/18 10:30 16:40 17:40 WBC RBC Hgb Hct MCV MCH MCHC RDW Plt Count MPV Neut % (Auto) Lymph % (Auto) [place] % (Auto) Eos % (Auto) Baso % (Auto) Neut # (Auto) Lymph # (Auto) [place] # (Auto) Eos # (Auto) Baso # (Auto) WBC Differential Differential Comment ESR Sodium Potassium Chloride Carbon Dioxide Anion Gap BUN Creatinine Estimated GFR POC Glucose 88 Random Glucose Calcium Total Bilirubin AST ALT Alkaline Phosphatase Troponin I Less than 0.02 L Total Protein Albumin Triglycerides Cholesterol LDL Cholesterol, Calc HDL Cholesterol Cholesterol/HDL Ratio Vitamin B12 TSH 2.210 04/25/18 04/25/18 04/25/18 17:40 21:28 23:10 WBC RBC Hgb Hct MCV MCH MCHC RDW Plt Count MPV Neut % (Auto) Lymph % (Auto) [place] % (Auto) Eos % (Auto) Baso % (Auto) Neut # (Auto) Lymph # (Auto) [place] # (Auto) Eos # (Auto) Baso # (Auto) WBC Differential Differential Comment ESR 13 Sodium Potassium Chloride Carbon Dioxide Anion Gap BUN Creatinine Estimated GFR POC Glucose 88 Random Glucose Calcium Total Bilirubin AST ALT Alkaline Phosphatase Troponin I Less than 0.02 L Total Protein Albumin Triglycerides 85 Cholesterol 134 LDL Cholesterol, Calc 62 HDL Cholesterol 54.9 Cholesterol/HDL Ratio 2.44 Vitamin B12 344 TSH 04/26/18 04/26/18 04/26/18 07:03 07:03 07:56 WBC 6.0 RBC 3.58 L Hgb 11.5 L Hct 33.4 L MCV 93.2 MCH 32.0 MCHC 34.4 RDW 13.1 Plt Count 173 MPV 8.1 Neut % (Auto) 70.2 H Lymph % (Auto) 18.2 [place] % (Auto) 8.7 H Eos % (Auto) 2.4 Baso % (Auto) 0.5 Neut # (Auto) 4.2 Lymph # (Auto) 1.1 [place] # (Auto) 0.5 Eos # (Auto) 0.1 Baso # (Auto) 0.0 WBC Differential . Differential Comment Auto diff final ESR Sodium 142 Potassium 3.7 Chloride 108 H Carbon Dioxide 25.0 Anion Gap 9 BUN 13 Creatinine 0.88 Estimated GFR 82 L POC Glucose 82 Random Glucose 74 Calcium 8.2 L D Total Bilirubin 1.9 H AST 22 ALT 19 Alkaline Phosphatase 56 Troponin I Total Protein 6.2 L D Albumin 3.1 L D Triglycerides Cholesterol LDL Cholesterol, Calc HDL Cholesterol Cholesterol/HDL Ratio Vitamin B12 TSH - Imaging Impressions Head CT 04/25/18 10:21 CONCLUSION: 1. Severe diffuse periventricular and subcortical white matter small vessel ischemic changes bilaterally. 2. Cerebral atrophy. 3. 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 4. No acute hemorrhage, acute infarct, midline shift or extra-axial bleed. . Head CTA 04/25/18 10:55 CONCLUSION: No acute intracranial vascular abnormality is identified. Neck CTA 04/25/18 10:55 CONCLUSION: 1. Negative CTA Carotid. Head MRI 04/25/18 14:35 CONCLUSION: 1. Acute to subacute linear infarct in the left basal ganglia extending over a length about 1.5 cm. 2. Remote left basal ganglia infarct. Moderate chronic ischemic changes in the white matter. Assessment and Plan - Plan 87-year-old male with: Acute basal ganglia stroke: The pt presented with dysarthria and a right sided facial droop. MRI: Acute to subacute linear infarct in the left basal ganglia extending over a length about 1.5 cm. Remote left basal ganglia infarct. Moderate chronic ischemic changes in the white matter. -neurology following. Patient started on Plavix -echo pending. -Speech therapy for swallow eval today. -PT/OT/ST. -permissive HTN. -IVFs. -check A1c, lipid profile, B12 and TSH. -case aide consult. -Baby ASA. HTN Blood pressure currently acceptable. On lisinopril and Lopressor as an outpt. -permissive HTN for now. -resume home regimen in AM. PPx: Start heparin
[2018-04-26 13:33] LABS: Hemoglobin A1c 5.8 % (4.3-6.0)
[2018-04-26] MEDS: Heparin - SQ 10,000 UNITS/ML Vial SQ SCH ×2 (14:47→22:22)
--- NOTE | 2018-04-26 18:24 | P.PNNEU ---
Subjective Subjective Comments: sr Active Medications: Active Medications Acetaminophen (Tylenol) 650 mg PO Q4H PRN PRN Reason: Temp > 100.4, pain 1-2 Aspirin (Ecotrin) 81 mg PO DAILY [facility] Last Admin: 04/26/18 10:05 Dose: Not Given Clopidogrel Bisulfate (Plavix) 75 mg PO DAILY [facility] Last Admin: 04/26/18 10:05 Dose: Not Given Enalaprilat (Vasotec Inj) 1.25 mg IV.PUSH Q6H PRN PRN Reason: sbp > 210 Heparin Sodium (Porcine) (Heparin Inj) 5,000 units SQ Q12HR [facility] Last Admin: 04/26/18 14:47 Dose: 5,000 units Sodium Chloride (Ns Inj) 1,000 mls @ 70 mls/hr IV.CONT .[id number] [facility] Last Admin: 04/26/18 14:57 Dose: 70 mls/hr Pravastatin Sodium (Pravachol) 20 mg PO DAILY@1800 [facility] Last Admin: 04/26/18 17:22 Dose: 20 mg Sodium Chloride (Ns Flush) 2 ml IV.FLUSH PRN PRN PRN Reason: FLUSH AFTER USING IV ACCESS Allergies/Adverse Reactions: Allergies Allergy/AdvReac Type Severity Reaction Status Date / Time No Known Allergies Allergy Verified 02/10/18 18:11 Physical Exam Vital signs: Vital Signs 04/25/18 20:00 04/26/18 00:00 04/26/18 04:00 Temperature 97.9 F 97.1 F L 97.9 F Pulse Rate 67 64 65 Respiratory Rate 17 19 20 Blood Pressure 172/76 H 159/78 H 140/88 Pulse Oximetry 95 95 100 04/26/18 08:00 04/26/18 10:03 04/26/18 12:00 Temperature 97.7 F 98.5 F Pulse Rate 66 67 65 Respiratory Rate 18 18 Blood Pressure 135/78 150/74 H Pulse Oximetry 97 96 04/26/18 15:57 Temperature 98.4 F Pulse Rate 88 Respiratory Rate 18 Blood Pressure 109/61 Pulse Oximetry 100 Intake & Output 04/25/18 04/26/18 04/26/18 18:59 06:59 18:59 Intake Total 1000 / 1000 1500 / 1500 Output Total 800 / 800 400 / 400 Balance 200 / 200 1100 / 1100 Weight 54.885 kg 53.8 kg Intake: IV 1000 / 1000 1000 / 1000 NS Inj 1,000 ML @ 70 mls/hr IV. 1000 / 1000 1000 / 1000 CONT .[id number] [facility] Rx#:[id number] Oral 500 / 500 Output: Urine 800 / 800 400 / 400 Other: # Voids 3 5 # Urine Diapers 1 Date of Last Bowel Movement 04/24/18 04/26/18 04/26/18 # Bowel Movements 2 Narrative: sr vff r drop speech slurred / rue adn rle Objective Laboratory Results - last 24 hr 04/25/18 04/25/18 04/25/18 10:30 17:40 17:40 WBC RBC Hgb Hct MCV MCH MCHC RDW Plt Count MPV Neut % (Auto) Lymph % (Auto) Real % (Auto) Eos % (Auto) Baso % (Auto) Neut # (Auto) Lymph # (Auto) Real # (Auto) Eos # (Auto) Baso # (Auto) WBC Differential Differential Comment ESR 13 Sodium Potassium Chloride Carbon Dioxide Anion Gap BUN Creatinine Estimated GFR POC Glucose Random Glucose Hemoglobin A1c 5.8 Calcium Total Bilirubin AST ALT Alkaline Phosphatase Troponin I Less than 0.02 L Total Protein Albumin Triglycerides Cholesterol LDL Cholesterol, Calc HDL Cholesterol Cholesterol/HDL Ratio Vitamin B12 04/25/18 04/25/18 04/26/18 21:28 23:10 07:03 WBC 6.0 RBC 3.58 L Hgb 11.5 L Hct 33.4 L MCV 93.2 MCH 32.0 MCHC 34.4 RDW 13.1 Plt Count 173 MPV 8.1 Neut % (Auto) 70.2 H Lymph % (Auto) 18.2 Real % (Auto) 8.7 H Eos % (Auto) 2.4 Baso % (Auto) 0.5 Neut # (Auto) 4.2 Lymph # (Auto) 1.1 Real # (Auto) 0.5 Eos # (Auto) 0.1 Baso # (Auto) 0.0 WBC Differential . Differential Comment Auto diff final ESR Sodium Potassium Chloride Carbon Dioxide Anion Gap BUN Creatinine Estimated GFR POC Glucose 88 Random Glucose Hemoglobin A1c Calcium Total Bilirubin AST ALT Alkaline Phosphatase Troponin I Less than 0.02 L Total Protein Albumin Triglycerides 85 Cholesterol 134 LDL Cholesterol, Calc 62 HDL Cholesterol 54.9 Cholesterol/HDL Ratio 2.44 Vitamin B12 344 04/26/18 04/26/1804/26/18 07:03 07:56 12:39 WBC RBC Hgb Hct MCV MCH MCHC RDW Plt Count MPV Neut % (Auto) Lymph % (Auto) Real % (Auto) Eos % (Auto) Baso % (Auto) Neut # (Auto) Lymph # (Auto) Real # (Auto) Eos # (Auto) Baso # (Auto) WBC Differential Differential Comment ESR Sodium 142 Potassium 3.7 Chloride 108 H Carbon Dioxide 25.0 Anion Gap 9 BUN 13 Creatinine 0.88 Estimated GFR 82 L POC Glucose 82 71 Random Glucose 74 Hemoglobin A1c Calcium 8.2 L D Total Bilirubin 1.9 H AST 22 ALT 19 Alkaline Phosphatase 56 Troponin I Total Protein 6.2 L D Albumin 3.1 L D Triglycerides Cholesterol LDL Cholesterol, Calc HDL Cholesterol Cholesterol/HDL Ratio Vitamin B12 04/26/18 17:21 WBC RBC Hgb Hct MCV MCH MCHC RDW Plt Count MPV Neut % (Auto) Lymph % (Auto) Real % (Auto) Eos % (Auto) Baso % (Auto) Neut # (Auto) Lymph # (Auto) Real # (Auto) Eos # (Auto) Baso # (Auto) WBC Differential Differential Comment ESR Sodium Potassium Chloride Carbon Dioxide Anion Gap BUN Creatinine Estimated GFR POC Glucose 116 H Random Glucose Hemoglobin A1c Calcium Total Bilirubin AST ALT Alkaline Phosphatase Troponin I Total Protein Albumin Triglycerides Cholesterol LDL Cholesterol, Calc HDL Cholesterol Cholesterol/HDL Ratio Vitamin B12 Review/Management - Review/Management Plan: imp sr mri left lacune type cva echo and holter pend ldl nl labs ok oob and can dc tomorrow if holter done and echo neg on statin and plavix dc asa in 5 days
[2018-04-27] MEDS: Sod Chloride 0.9% Inj 1,000 ML IV.CONT SCH (06:10)
[2018-04-27 07:43] LABS: Hematocrit 32.2 % (39.0-51.0); Hemoglobin 11.1 gm/dL (13.0-17.0); Mean Corpuscular HGB Conc 34.5 % (32.0-36.0); Mean Corpuscular Hemoglobin 32.3 pg (27.0-34.0); Mean Corpuscular Volume 93.6 fL (80.0-100.0); Mean Platelet Volume 8.2 fL (7.0-11.0); Platelet Count 159 th/mm3 (150-450); Red Blood Count 3.44 mil/mm3 (4.50-5.90); White Blood Count 5.3 th/mm3 (4.0-11.0)
--- NOTE | 2018-04-27 08:02 | P.PNNEU ---
Subjective Active Medications: Active Medications Acetaminophen (Tylenol) 650 mg PO Q4H PRN PRN Reason: Temp > 100.4, pain 1-2 Aspirin (Ecotrin) 81 mg PO DAILY [facility] Last Admin: 04/26/18 10:05 Dose: Not Given Clopidogrel Bisulfate (Plavix) 75 mg PO DAILY [facility] Last Admin: 04/26/18 10:05 Dose: Not Given Enalaprilat (Vasotec Inj) 1.25 mg IV.PUSH Q6H PRN PRN Reason: sbp > 210 Heparin Sodium (Porcine) (Heparin Inj) 5,000 units SQ Q12HR [facility] Last Admin: 04/26/18 22:22 Dose: 5,000 units Sodium Chloride (Ns Inj) 1,000 mls @ 70 mls/hr IV.CONT .[id number] [facility] Last Admin: 04/27/18 06:10 Dose: 70 mls/hr Pravastatin Sodium (Pravachol) 20 mg PO DAILY@1800 [facility] Last Admin: 04/26/18 17:22 Dose: 20 mg Sodium Chloride (Ns Flush) 2 ml IV.FLUSH PRN PRN PRN Reason: FLUSH AFTER USING IV ACCESS Allergies/Adverse Reactions: Allergies Allergy/AdvReac Type Severity Reaction Status Date / Time No Known Allergies Allergy Verified 02/10/18 18:11 Physical Exam Vital signs: Vital Signs 04/26/18 10:03 04/26/18 12:00 04/26/18 15:57 Temperature 98.5 F 98.4 F Pulse Rate 67 65 88 Respiratory Rate 18 18 Blood Pressure 150/74 H 109/61 Pulse Oximetry 96 100 04/26/18 19:40 04/26/18 20:00 04/26/18 20:30 Temperature 98.4 F Pulse Rate 88 76 Respiratory Rate 18 Blood Pressure 160/77 H Pulse Oximetry 98 94 L 04/27/18 00:00 04/27/18 00:30 04/27/18 04:00 Temperature 98.3 F 97.9 F Pulse Rate 81 60 62 Respiratory Rate 17 21 Blood Pressure 185/88 H 142/68 H Pulse Oximetry 95 96 04/27/18 04:30 Temperature Pulse Rate 65 Respiratory Rate Blood Pressure Pulse Oximetry Intake & Output 04/26/18 04/27/18 04/27/18 18:59 06:59 18:59 Intake Total 1500 / 1500 1000 / 1000 Output Total 400 / 400 Balance 1100 / 1100 1000 / 1000 Weight 55.4 kg Intake: IV 1000 / 1000 1000 / 1000 NS Inj 1,000 ML @ 70 mls/hr IV. 1000 / 1000 1000 / 1000 CONT .[id number] [facility] Rx#:[id number] Oral 500 / 500 Output: Urine 400 / 400 Other: # Incontinent Voids 4 Date of Last Bowel Movement 04/26/18 04/26/18 # Bowel Movements 0 Narrative: sr vff r drop speech slurred / rue and rle no change Objective Laboratory Results - last 24 hr 04/25/18 04/26/18 04/26/18 10:30 12:39 17:21 WBC RBC Hgb Hct MCV MCH MCHC RDW Plt Count MPV POC Glucose 71 116 H Hemoglobin A1c 5.8 04/26/18 04/27/18 04/27/18 22:34 06:30 07:49 WBC 5.3 RBC 3.44 L Hgb 11.1 L Hct 32.2 L MCV 93.6 MCH 32.3 MCHC 34.5 RDW 13.0 Plt Count 159 MPV 8.2 POC Glucose 119 H 112 H Hemoglobin A1c Review/Management - Review/Management Plan: imp sr mri left lacune type cva echo and holter pend ldl nl labs ok oob and can dc tomorrow if holter done and echo neg on statin and plavix dc asa in 5 days 04/27/18 going to echo if holter done and echo neg can dc on plavix and statin as above stable overnoc
[2018-04-27 08:06] LABS: Calcium 8.2 mg/dL (8.5-10.1); Carbon Dioxide 23.5 meq/L (21.0-32.0); Potassium 3.9 meq/L (3.5-5.1)
[2018-04-27] MEDS: Heparin - SQ 10,000 UNITS/ML Vial SQ SCH (08:16)
[2018-04-27 09:30] VITALS: RESP 20
[2018-04-27 10:54] VITALS: O2SAT 96
[2018-04-27 13:23] VITALS: BP 153/82; PULSE 66; TEMP 98.3
--- NOTE | 2018-04-27 14:03 | P.DS ---
Date of admission: 04/25/18 13:17 Primary care physician: Carl Cortes MD Brief History from admission: HPI as documented by the admitting physician: The patient is an 87-year-old male with a past medical history of hypertension and hyperlipidemia who is presenting to the hospital with slurred speech. The patient says that last night his family was over and after eating dinner they noticed that he was drooling. They also noticed that the patient's speech became slurred. His face also appeared to be asymmetrical. They recommended he come to the emergency department but the patient refused. This morning he woke up and was unable to talk correctly. He started stumbling with ambulation. He denied any pain or shortness of breath. He was brought to the hospital at that time. He denies any numbness or tingling. He says he is still having speech difficulties. He denies any recent travel. He denies any prior history of stroke. Family was at the bedside and assisted with history. He has had a tremor for quite some time. Patient update on day of discharge: Patient reports he is feeling much better, feels stronger, speech clear. He wants to go home. DS: Diagnosis - Discharge Diagnosis (1) Acute CVA (cerebrovascular accident) Status: Acute (2) Dysarthria Status: Acute DS: Medications - Discharge Medications Prescriptions: clopidogrel [Plavix] 75 mg PO DAILY #30 tab DS: Summary Hospital Course: 87-year-old male admitted with acute basal ganglia stroke. The patient presented with dysarthria and right-sided facial droop. MRI: Acute to subacute linear infarct in the left basal ganglia extending over a length about 1.5 cm. Remote left basal ganglia infarct. Moderate chronic ischemic changes in the white matter. The patient was followed by neurology. He was started on Plavix in addition to aspirin. A 2D echocardiogram was unremarkable. He was followed by physical therapy and speech therapy. He is discharged home with Holter monitor to follow-up outpatient. HTN Permissive hypertension initially. Can resume home dose antihypertensive medications on discharge. - Time Spent with Patient Total time spent providing and/or coordinating discharge services: Greater than 30 minutes - Quality: VTE Deep Vein Thrombosis/Pulmonary Embolism Present on Admission: No Exam Vital signs: Vital Signs 04/26/18 15:57 04/26/18 19:40 04/26/18 20:00 Temperature 98.4 F 98.4 F Pulse Rate 88 88 Respiratory Rate 18 18 Blood Pressure 109/61 160/77 H Pulse Oximetry 100 98 94 L 04/26/18 20:30 04/27/18 00:00 04/27/18 00:30 Temperature 98.3 F Pulse Rate 76 81 60 Respiratory Rate 17 Blood Pressure 185/88 H Pulse Oximetry 95 04/27/18 04:00 04/27/18 04:30 04/27/18 08:00 Temperature 97.9 F 97.8 F Pulse Rate 62 65 70 Respiratory Rate 21 20 Blood Pressure 142/68 H 146/90 H Pulse Oximetry 96 95 04/27/18 10:54 04/27/18 11:50 04/27/18 12:00 Temperature 98.3 F Pulse Rate 74 66 Respiratory Rate 20 Blood Pressure 153/82 H Pulse Oximetry 96 96 Intake & Output 04/26/18 04/27/18 04/27/18 18:59 06:59 18:59 Intake Total 1500 / 1500 1000 / 1000 Output Total 400 / 400 Balance 1100 / 1100 1000 / 1000 Weight 55.4 kg Intake: IV 1000 / 1000 1000 / 1000 NS Inj 1,000 ML @ 70 mls/hr IV. 1000 / 1000 1000 / 1000 CONT .[id number] [facility] Rx#:[id number] Oral 500 / 500 Output: Urine 400 / 400 Other: # Incontinent Voids 4 Date of Last Bowel Movement 04/26/18 04/26/18 04/26/18 # Bowel Movements 0 Narrative: GENERAL: This is a well-nourished, well-developed patient, in no apparent distress. CARDIOVASCULAR: Normal rate and regular rhythm without murmurs, gallops, or rubs. RESPIRATORY: Good respiratory efforts. Breath sounds equal and clear to auscultation bilaterally. GASTROINTESTINAL: Abdomen soft, non-tender, non-distended. Normal active bowel sounds MUSCULOSKELETAL: Extremities without cyanosis, or edema. NEURO: Alert & Oriented x4 to person, place, time, situation. Facial droop noted, 4+ out of 5 strength on the right compared to 5 out of 5 on the left PSYCH: Appropriate mood and affect. Results Procedures completed during hospitalization: None Labs on day of discharge: Labs from last 24 hours 04/27/18 04/27/18 04/27/18 07:49 06:30 06:30 WBC 5.3 RBC 3.44 L Hgb 11.1 L Hct 32.2 L MCV 93.6 MCH 32.3 MCHC 34.5 RDW 13.0 Plt Count 159 MPV 8.2 Sodium 141 Potassium 3.9 Chloride 109 H Carbon Dioxide 23.5 Anion Gap 9 BUN 14 Creatinine 0.84 Estimated GFR 87 L POC Glucose 112 H Random Glucose 95 Hemoglobin A1c Calcium 8.2 L 04/26/18 04/26/18 04/25/18 22:34 17:21 10:30 WBC RBC Hgb Hct MCV MCH MCHC RDW Plt Count MPV Sodium Potassium Chloride Carbon Dioxide Anion Gap BUN Creatinine Estimated GFR POC Glucose 119 H 116 H Random Glucose Hemoglobin A1c 5.8 Calcium - Impressions ITS Impressions Head CT 04/25/18 10:21 CONCLUSION: 1. Severe diffuse periventricular and subcortical white matter small vessel ischemic changes bilaterally. 2. Cerebral atrophy. 3. 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 4. No acute hemorrhage, acute infarct, midline shift or extra-axial bleed. . Head CTA 04/25/18 10:55 CONCLUSION: No acute intracranial vascular abnormality is identified. Neck CTA 04/25/18 10:55 CONCLUSION: 1. Negative CTA Carotid. Head MRI 04/25/18 14:35 CONCLUSION: 1. Acute to subacute linear infarct in the left basal ganglia extending over a length about 1.5 cm. 2. Remote left basal ganglia infarct. Moderate chronic ischemic changes in the white matter. Discharge Plan - Discharge Disposition Patient Disposition: W/Home Health Service - Discharge Condition Condition: Stable - Discharge Order Discharge Orders: Discharge Order (Routine); Ordered 04/27/18 Ordered By: Charity Gonzalez - Physicians Team Primary Care Provider: Carl Cortes Attending Provider: Charity Gonzalez Other Providers: [employer] ; Edouard Mon MD
--- NOTE | 2018-04-27 14:47 | ECHRPT ---
Indication: cva CONCLUSIONS The left ventricular systolic function is hyperdynamic with an estimated ejection fraction in the ra nge of 65- 70%. Normal left ventricular size and wall thickness. Mild mitral valve regurgitation. BP: / HR: Rhythm: MEASUREMENTS (Male / Female) Normal Values Technical Quality: 2D ECHO LV Diastolic Diameter PLAX 4.0 cm 4.2 - 5.9 / 3.9 - 5.3 cm LV Systolic Diameter PLAX 2.6 cm IVS Diastolic Thickness 1.2 cm 0.6 - 1.0 / 0.6 - 0.9 cm LVPW Diastolic Thickness 1.1 cm 0.6 - 1.0 / 0.6 - 0.9 cm LV Relative Wall Thickness 0.6 RV Internal Dim ED PLAX 2.4 cm LVOT Diameter 2.1 cm M-MODE Aortic Root Diameter MM 3.5 cm LA Systolic Diameter MM 3.4 cm LA Ao Ratio MM 1.0 DOPPLER AV Peak Velocity 162.0 cm/s AV Peak Gradient 10.5 mmHg AI Peak Velocity 227.0 cm/s AI Peak Gradient 20.6 mmHg AI Pressure Half Time 242.0 ms Mitral E Point Velocity 84.9 cm/s Mitral A Point Velocity 45.4 cm/s Mitral E to A Ratio 1.9 LV E' Lateral Velocity 7.7 cm/s Mitral E to LV E' Lateral Ratio 11.0 LV E' Septal Velocity 7.1 cm/s Mitral E to LV E' Septal Ratio 11.9 TR Peak Velocity 238.0 cm/s TR Peak Gradient 23.0 mmHg Right Atrial Pressure 10.0 mmHg Pulmonary Artery Systolic Pressu 32.7 mmHg Right Ventricular Systolic Press 32.7 mmHg PV Peak Velocity 117.0 cm/s PV Peak Gradient 5.5 mmHg FINDINGS LEFT VENTRICLE Normal left ventricular size. Wall thickness is normal. The left ventricular systolic function is hyperdynamic with an estimated ejection fraction in the ra nge of 65- 70%. RIGHT VENTRICLE Normal right ventricular size and systolic function. LEFT ATRIUM The left atrial size is normal. RIGHT ATRIUM The right atrial size is normal. ATRIAL SEPTUM Normal atrial septal thickness without atrial level shunting by limited color doppler interrogation. AORTA The aortic root and proximal ascending aorta are normal in size on limited imaging. MITRAL VALVE Mild mitral valve regurgitation. AORTIC VALVE Trileaflet aortic valve. No aortic valve stenosis or regurgitation. TRICUSPID VALVE The estimated pulmonary arterial pressure is 33 mmHg. PULMONARY VALVE No pulmonary valve regurgitation or stenosis. VESSELS The inferior vena cava is normal in size. PERICARDIUM No pericardial effusion. Asuncion Henry MD (Electronically Signed) Final Date:27 April 2018 14:46
--- NOTE | 2018-04-29 15:07 | HM ---
Date Performed: 04/27/2018 Time Performed: 15:38:00 HOOKUP DATE: 04/27/18 03:38:00 PM Mon ANALYSIS START TIME: 04/27/2018 3:43:00 PM ANALYSIS END TIME: 04/28/2018 3:23:34 PM PATIENT AGE: 87 PATIENT HEIGHT: 66 PATIENT WEIGHT: 121 DRUG LIST: ROOM 1503 PATIENT DIAGNOSIS: CVA TEST NARRATIVE: The patient's average heart rate was 67 BPM. No episodes of tachycardia wer e noted. No episodes of bradycardia were noted. No pauses exceeding 2.0 seconds were noted. 143 ventricular ectopics, which represented < 1% of the total beat count, were noted. The highest ve ntricular ectopic frequency occurred from 06:00 PM to 07:00 PM Mon. During this time 52 VE(s) occurr ed. Ventricular ectopics were observed as 139 isolated beat(s) and as 2 couplet(s). No runs were no tuan. 202 supraventricular ectopics, which represented < 1% of the total beat count, were noted. The highest supraventricular ectopic frequency occurred from 08:00 AM to 09:00 AM Tue. During this t andres 17 SVE(s) occurred. No episodes of ST depression (defined as -1.0 mm or more) were noted in c hannel 1. No episodes of ST depression (defined as -1.0 mm or more) were noted in channel 2. No epi sodes of ST depression (defined as -1.0 mm or more) were noted in channel 3. NO DIARY WAS GIVEN TO MYRON BRAUN TEST INTERPRETATION: Sinus rhythm RARE PREMATURE VENTRICULAR COMPLEXES IN SINGLETS AND COUPLETS Signed by : Abraham Alvarez
== END 2018-04-27 16:44 | disposition home health service (06) ==
LOC: NEPE 09:49 → NEDA 13:17 → N05 15:30
PROVIDERS: ADMIT Family Medicine; ATTEND Family Medicine